=== PATIENT | female | born 1995 | race Two or more races ===

== ENCOUNTER 2016-10-26 09:43 | Emergency (ER) | payer MEDICAID ==
[~2016-10-26] VITALS: Ht 160 cm; Wt 72.6 kg
[2016-10-26] MEDS ORDERED: AZITHROMYCIN 250 MG TABLET PO ONE (10:00)
--- NOTE | 2016-10-26 10:06 | NUR ---
Patient discharged to home in stable conditon. Written and verbal after care instructions given, along with prescription for Z-Ankush. Patient verbalizes understanding of instructions. No further questions or concerns noted prior on leaving the ED.
[2016-10-26] MEDS ORDERED: AZITHROMYCIN 250 MG TABLET ONE (10:15)
== END 2016-10-26 10:08 | disposition home or self-care (01) ==
LOC: ER 09:45
DX: J02.0 Streptococcal pharyngitis (principal); A38.9 Scarlet fever, uncomplicated; Z88.0 Allergy status to penicillin
CPT/HCPCS: A4663; Q0144

== ENCOUNTER 2019-01-22 05:30 | Emergency (ER) | payer MEDICAID, OTHER ==
[~2019-01-22] VITALS: Ht 160 cm; Wt 72.1 kg
[2019-01-22] MEDS ORDERED: ONDANSETRON 4 MG/2 ML VIAL IV ONE (06:15)
[2019-01-22] MEDS ORDERED: IV NORMAL SALINE 1000 ML BAG IV ONE (06:15)
[2019-01-22 06:22] LABS: BASOPHILS # (AUTO) 0.1 K/uL (0.0-8.0); BASOPHILS % (AUTO) 0.6 % (0.0-2.0); EOSINOPHILS % (AUTO) 0.1 % (0.0-7.0); HEMATOCRIT 33.3 % (31.2-41.9); HEMOGLOBIN 10.9 g/dL (10.9-14.3); LYMPHOCYTES # (AUTO) 7.5 K/uL (20.0-40.0); LYMPHOCYTES % (AUTO) 59.4 % (20.5-51.5); MEAN CORPUSCULAR HEMOGLOBIN 28.7 uug (24.7-32.8); MEAN CORPUSCULAR HGB CONC 33 g/dL (32.3-35.6); MONOCYTES % (AUTO) 7.8 % (0.0-11.0); NEUTROPHILS # (AUTO) 4.1 K/uL (1.8-8.9); NEUTROPHILS % (AUTO) 32.1 % (38.5-71.5); PLATELET COUNT (AUTO) 215 K/uL (179-408); RED BLOOD CELL COUNT(AUTO) 3.78 MIL/uL (3.63-4.92); WHITE BLOOD COUNT (AUTO) 12.7 K/uL (3.8-11.8)
[2019-01-22] MEDS ORDERED: ONDANSETRON 4 MG/2 ML VIAL ONE (06:25)
[2019-01-22 06:31] LABS: CARBON DIOXIDE 26 mmol/L (21-32); CHLORIDE 102 mmol/L (98-107); GLUCOSE 97 mg/dL (74-106); POTASSIUM 4.2 mmol/L (3.5-5.1); UREA NITROGEN, BLOOD 9 mg/dL (7-18)
[2019-01-22 06:37] LABS: ALANINE AMINOTRANSFERASE 90 U/L (14-59); ALKALINE PHOSPHATASE 77 U/L (50-136); ASPARTATE AMINOTRANSFERASE 98 U/L (15-37); BILIRUBIN,DIRECT 0.1 mg/dL (0.0-0.2); BILIRUBIN,TOTAL 0.6 mg/dL (0.2-1.0)
--- NOTE | 2019-01-22 06:41 | NUR ---
Dr. Maloney in patient's room at bedside.
[2019-01-22] MEDS ORDERED: KETOROLAC TROMETHAMINE 30 MG INJ IVP ONE (07:00)
[2019-01-22] MEDS ORDERED: DEXAMETHASONE SOD PHOSPHATE 4 MG INJ IV ONE (07:00)
[2019-01-22] MEDS ORDERED: DEXAMETHASONE SOD PHOSPHATE 10 MG INJ ONE (07:13)
[2019-01-22] MEDS ORDERED: KETOROLAC TROMETHAMINE 30 MG INJ ONE (07:14)
--- NOTE | 2019-01-22 07:20 | NUR ---
shift report given to HERNAN Yu.
[2019-01-22 08:11] VITALS: BP 111/91
== END 2019-01-22 08:14 | disposition home or self-care (01) ==
LOC: ER 05:33
DX: B27.90 Infectious mononucleosis, unspecified without complication (principal); J02.9 Acute pharyngitis, unspecified; Z88.0 Allergy status to penicillin
CPT/HCPCS: 36415; 80048; 80076; 84702; 85025; 96361; 96374; 96375; 99283; J1100; J1885; J2405; A4663; J7030